=== PATIENT | female | born 1970 | race African-American/Black ===

== ENCOUNTER 2022-04-26 10:02 | Outpatient (CLI) | payer OTHER | END 2022-04-26 10:03 | disposition home or self-care (01) | LOC: CSHRAD 10:02 | PROVIDERS: ATTEND Student in an Organized Health Care Education/Training Program | DX: M25.512 Pain in left shoulder (principal); M25.511 Pain in right shoulder; M25.571 Pain in right ankle and joints of right foot; M19.012 Primary osteoarthritis, left shoulder; M19.011 Primary osteoarthritis, right shoulder; M19.071 Primary osteoarthritis, right ankle and foot ==